=== PATIENT | male | born 1965 | race Native Hawaiian/Other Pacific Islander ===

== ENCOUNTER 2017-11-17 13:16 | Outpatient (CLI) | payer OTHER | END 2017-11-17 13:17 | disposition critical access hospital (66) | LOC: EMS 13:16 | PROVIDERS: ATTEND Surgery | DX: M25.551 Pain in right hip (principal); M54.5 Low back pain; V47.5XXA Car driver injured in collision with fixed or stationary object in traffic accident, initial encounter; Y92.414 Local residential or business street as the place of occurrence of the external cause | CPT/HCPCS: A0425; A0427 ==

== ENCOUNTER 2017-11-17 13:46 | Emergency (ER) | payer OTHER ==
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
[2017-11-17] MEDS ORDERED: MORPHINE 10 MG/ML VIAL IVP STA ×2 (14:15→15:57)
[2017-11-17] MEDS ORDERED: MORPHINE 10 MG/ML VIAL IVP SCH (15:00)
--- NOTE | 2017-11-17 15:14 | CT Preliminary Report ---
Exam: CT LUMBAR SPINE W/O IMPRESSION: 1. No acute fracture or malalignment 2. Multilevel degenerative changes. 3. Postoperative fusion L4-L5. [facility] SITE ID: [id number]
--- NOTE | 2017-11-17 15:17 | CT Preliminary Report ---
Exam: CT HEAD W/O IMPRESSION: 1. No intracranial hemorrhage. No calvarial fracture. 2. Right maxillary sinus mucocele (incidental). [facility] SITE ID: [id number]
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
[2017-11-17 16:18] VITALS: BP 156/106
== END 2017-11-17 17:27 | disposition home or self-care (01) ==
LOC: ED 13:46
DX: S39.012A Strain of muscle, fascia and tendon of lower back, initial encounter (principal); V47.5XXA Car driver injured in collision with fixed or stationary object in traffic accident, initial encounter; G44.309 Post-traumatic headache, unspecified, not intractable; Z96.649 Presence of unspecified artificial hip joint; Z98.1 Arthrodesis status
CPT/HCPCS: 70450; 72131; 96374; 96376; 99283

== ENCOUNTER 2020-02-02 08:00 | Outpatient (CLI) | payer OTHER ==
--- NOTE | 2020-02-02 10:24 | XRAY Report ---
PROCEDURE: Wrist 3 View RT INDICATIONS: PAIN IN RIGHT WRIST TECHNIQUE: The views of the wrist were acquired. COMPARISON: None. FINDINGS: Bones: No fractures or dislocations. No suspicious bony lesions. There is severe first carpometaca rpal joint degeneration and moderate triscaphe joint degeneration. Soft tissues: There are calcifications in the area of the triangular fibrocartilage. IMPRESSION: 1. No fracture or dislocation. 2. Severe degenerative joint disease at the first carpometacarpal joint. 3. Calcification in the area of the triangular fibrocartilage, likely sequelae of repetitive injury. If clinically indicated, as MR angiogram may be helpful. Reviewed by: Raj Stewart MD on 02/02/2020 10:22 AM PDT Approved by: Raj Stewart MD on 02/02/2020 10:22 AM PDT Station ID: [id number]
== END 2020-02-02 23:59 | disposition home or self-care (01) ==
LOC: DI.S 08:00
PROVIDERS: ATTEND Physician Assistant
DX: M18.11 Unilateral primary osteoarthritis of first carpometacarpal joint, right hand (principal); M25.831 Other specified joint disorders, right wrist

== ENCOUNTER 2020-05-10 08:44 | Outpatient (CLI) | payer OTHER ==
[2020-05-10 16:05] LABS: BASOPHILS % (AUTO) 0.4 %; EOSINOPHILS # (AUTO) 0.1 10^3/uL (0.0-0.7); EOSINOPHILS % (AUTO) 1.7 %; HGB - HEMOGLOBIN 15.1 g/dL (14.0-18.0); LYMPHOCYTES # (AUTO) 2.2 10^3/uL (1.5-3.5); LYMPHOCYTES % (AUTO) 26.4 %; MEAN CORPUSCULAR HEMOGLOBIN 30.5 pg (27.0-31.0); MEAN CORPUSCULAR HGB CONC 33.2 g/dL (32.0-36.0); MEAN CORPUSCULAR VOLUME 91.9 fL (80.0-94.0); MEAN PLATELET VOLUME 11.9 fL (7.4-11.4); MONOCYTES # (AUTO) 0.5 10^3/uL (0.0-1.0); MONOCYTES % (AUTO) 6.2 %; NEUTROPHILS # (AUTO) 5.4 10^3/uL (1.5-6.6); NEUTROPHILS % (AUTO) 64.8 %; PLT - PLATELET COUNT 228 10^3/uL (130-450); RED BLOOD COUNT 4.95 10^6/uL (4.70-6.10); WHITE BLOOD COUNT 8.3 x10^3/uL (4.8-10.8)
[2020-05-10 16:36] LABS: ALBUMIN 4.4 g/dL (3.2-5.5); ALBUMIN/GLOBULIN RATIO 1.4 (1.0-2.2); ALKALINE PHOSPHATASE 49 IU/L (42-121); ALT ALANINE AMINOTRANSFERASE 16 IU/L (10-60); AST ASPARTATE AMINOTRANSFERASE 18 IU/L (10-42); BILIRUBIN,TOTAL 1.1 mg/dL (0.2-1.0); BUN - BLOOD UREA NITROGEN 14 mg/dL (6-20); CALCIUM 9.6 mg/dL (8.5-10.3); CARBON DIOXIDE - CO2 26 mmol/L (21-32); CHLORIDE 102 mmol/L (101-111); CHOL/HDL RATIO 4.1 (<5.0); CHOLESTEROL 177 mg/dL; CREATININE 0.8 mg/dL (0.6-1.2); GLUCOSE 100 mg/dL (70-100); HDL CHOLESTEROL 43 mg/dL; LDL CHOLESTEROL,CALCULATED 104 mg/dL; LDL CHOLESTEROL,DIRECT 111 mg/dL; LDL/HDL RATIO 2.4 (<3.6); SODIUM 138 mmol/L (135-145); TOTAL PROTEIN 7.6 g/dL (6.7-8.2); VLDL CHOLESTEROL 30 mg/dL
[2020-05-11 13:52] LABS: HEPATITIS C ANTIBODY NON-REACTIVE (NON-REACTIVE)
[2020-05-12 08:17] LABS: HIV AG/AB 4TH GEN NON-REACTIVE (NON-REACTIVE)
== END 2020-05-10 08:45 | disposition home or self-care (01) ==
LOC: LAB.S 08:44
PROVIDERS: ATTEND Family Medicine
DX: R61 Generalized hyperhidrosis (principal); Z13.1 Encounter for screening for diabetes mellitus; Z11.59 Encounter for screening for other viral diseases; Z11.4 Encounter for screening for human immunodeficiency virus [HIV]; Z13.220 Encounter for screening for lipoid disorders; Z12.5 Encounter for screening for malignant neoplasm of prostate
CPT/HCPCS: 36415; 80053; 80061; 81599; 83721; 84153; 84443; 85025; 86480; 86803; 87389